=== PATIENT | male | born 1990 | race Caucasian/White ===

== ENCOUNTER 2017-10-13 05:11 | Emergency (ER) | payer BC ==
[~2017-10-13] VITALS: Ht 177.8 cm; Wt 73.3 kg
[2017-10-13 05:12] VITALS: Ht 177.8 cm; Wt 73.3 kg
[2017-10-13] MEDS ORDERED: AMOX1TAB10 PO (06:12)
[2017-10-13] MEDS ORDERED: HYDR-906 PO (06:12)
--- NOTE | 2017-10-13 07:50 | ERD ---
ER Documentation Chief Complaint Chief Complaint toothache HPI 27-year-old male complaining of dental pain 1 week. Ago patient had similar symptoms and was given amoxicillin by his dentist. Pain resolved. Patient denies any trouble swallowing. No fevers. He states that the dentist has recommended to have tooth pulled however patient has few teeth and was concerned about having another tooth pulled. Patient has been taking ibuprofen for pain relief with only mild relief. Denies any facial swelling. ROS All systems reviewed and are negative except as per history of present illness. Medications Home Meds Active Scripts Hydrocodone/Acetaminophen (Judsonia 5-325 Tablet) 1 Each Tablet, 1 TAB PO Q6H Y for PAIN, #10 TAB Prov:GUNNER TORIBIO PA-C 10/13/17 Amoxicillin/Potassium Clav (Amox-Clav 875-125 mg Tablet) 875-125 mg Tab, 1 TAB PO BID for 7 Days, #14 TAB Prov:GUNNER TORIBIO PA-C 10/13/17 Allergies Allergies: Coded Allergies: No Known Drug Allergies (Verified Allergy, Mild, 05/18/14) PMhx/Soc History of Surgery: Yes (ANKLE) Hx Neurological Disorder: No Hx Respiratory Disorders: No Hx Cardiac Disorders: No Hx Miscellaneous Medical Probl: No Hx Alcohol Use: No Hx Substance Use: Yes (CRYSTAL METH) Hx Tobacco Use: Yes (CIGARETTES) Smoking Status: Current every day smoker Physical Exam Vitals Vital Signs Date Time Temp Pulse Resp B/P Pulse Ox O2 Delivery O2 Flow Rate FiO2 10/13/17 06:22 98 Room Air 10/13/17 05:12 97.2 82 20 127/89 100 Physical Exam GENERAL: The patient is well-appearing, well-nourished, in no acute distress HEENT: Atraumatic. Conjunctivae are pink. Pupils equal, round, and reactive to light. There is no scleral icterus. Tympanic membranes clear bilaterally. Oropharynx clear. Poor dentition throughout. No swelling noted to the gums. No facial swelling. No cervical lymphadenopathy. NECK: C-spine is soft and supple. There is no meningismus. There is no cervical lymphadenopathy. CHEST: Clear to auscultation bilaterally. There are no rales, wheezes or rhonchi. HEART: Regular rate and rhythm. No murmurs, clicks, rubs or gallops. No S3 or S4. SKIN: There is no apparent rash or petechiae. The skin is warm and dry. Procedures/MDM MDM: 27-year-old male complaining of toothache 1 week. Patient's exam is concerning for possible early tooth abscess however there is no swelling noted to the cheek or face. Patient does have pain with biting down of tongue depressor. I will treat with oral antibiotics and pain medication. Patient likely needs to have tooth removed and is recommended follow-up with dentist. I have low suspicion for deep abscess or airway constriction as patient's vital signs and exam is non-concerning. There is no obvious swelling noted on exam. Patient is discharged with strict ER precautions and recommended to follow-up with primary care within 1-2 days for close evaluation. Patient is told if symptoms change or worsen to return immediately to the ER Departure Diagnosis: Primary Impression: Toothache Condition: Stable Patient Instructions: Dental Pain Referrals: [facility]) Additional Instructions: FOLLOW UP WITH YOUR PRIMARY CARE PHYSICIAN TOMORROW.Return to this facility if you are not improving as expected. GUNNER TORIBIO PA-C Oct 13, 2017 07:50
== END 2017-10-13 06:23 | disposition home or self-care (01) ==
LOC: FTE 05:11
DX: K08.89 Other specified disorders of teeth and supporting structures (principal); F17.210 Nicotine dependence, cigarettes, uncomplicated
CPT/HCPCS: 99284

== ENCOUNTER 2017-10-29 17:00 | Emergency (ER) | payer SELFPAY ==
[~2017-10-29] VITALS: Ht 182.9 cm; Wt 77.4 kg
[~2017-10-29 17:00] MED LIST: AMOX1TAB10 PO; HYDR-906 PO
[2017-10-29 17:04] VITALS: Ht 182.9 cm; Wt 77.4 kg
== END 2017-10-29 20:34 | disposition left against medical advice (07) ==
LOC: E/R 17:00
DX: Z53.21 Procedure and treatment not carried out due to patient leaving prior to being seen by health care provider (principal)

== ENCOUNTER 2018-08-30 04:10 | Emergency (ER) | END 2018-08-30 06:09 | disposition short-term general hospital (02) ==